=== PATIENT | female | born 1985 | race Two or more races ===

== ENCOUNTER 2016-10-04 10:33 | Emergency (ER) | payer MEDICAID ==
[~2016-10-04] VITALS: Ht 165.1 cm; Wt 87.5 kg
[2016-10-04 10:38] VITALS: BP 135/63
[2016-10-04] MEDS ORDERED: cefTRIAXone SOD 1,000 MG VL IM ONE (12:15)
== END 2016-10-04 12:42 | disposition home or self-care (01) ==
LOC: ER 10:33
DX: J03.90 Acute tonsillitis, unspecified (principal); Z88.1 Allergy status to other antibiotic agents
CPT/HCPCS: 96372; 99283; J0696